=== PATIENT | female | born 1950 | race Caucasian/White ===

== ENCOUNTER → 2016-03-25 | Outpatient (CLI) | payer MEDICARE, BC | LOC: LAB.NP 10:51 | PROVIDERS: ATTEND Family Medicine | DX: E03.9 Hypothyroidism, unspecified (principal) ==

== ENCOUNTER → 2016-07-20 | Outpatient (CLI) | payer MEDICARE ==
--- NOTE | 2016-07-20 14:52 | MAM ---
History: Well woman exam. Date of exam: 07/20/2016 Services provided: Bilateral full field digital screening mammography. CAD, the images were reviewed with R2 computer aided detection. FINDINGS: Glandular tissue is scattered glandular contour with increased mammographic density. Comparison with 2012 exam. No dominant mass, architectural distortion or clustered microcalcification. IMPRESSION: Benign exam Recommendation: Routine annual mammography BIRAD CATEGORY: 2 BENIGN Electronically signed by: Alberta Bailey MD 07/20/2016 2:50 PM CDT
== END | disposition home or self-care (01) ==
LOC: MAMMO 10:32
PROVIDERS: ATTEND Family Medicine
DX: Z12.31 Encounter for screening mammogram for malignant neoplasm of breast (principal)

== ENCOUNTER → 2017-03-09 | Outpatient (CLI) | payer MEDICARE | END | disposition home or self-care (01) | LOC: GMA 14:22 | PROVIDERS: ATTEND Physician Assistant | DX: N30.00 Acute cystitis without hematuria (principal) ==

== ENCOUNTER → 2017-04-12 | Outpatient (CLI) | payer MEDICARE | LOC: GMAB 10:43 | PROVIDERS: ATTEND Family Medicine | DX: E03.9 Hypothyroidism, unspecified (principal) ==

== ENCOUNTER 2017-08-26 00:18 | Emergency (ER) | payer MEDICARE ==
[2017-08-26] MEDS ORDERED: SODIUM CHLORIDE 0.9% (FLUSH) 10 ML SYG IV PRN (00:30)
--- NOTE | 2017-08-26 00:42 | ED.PDOC ---
History of Present Illness - General Chief Complaint: Cardiovascular Problem Stated Complaint: irregular heart rate Time Seen by Provider: 08/26/17 00:38 Source: patient, RN notes reviewed, family Exam Limitations: no limitations Additional Information: 67 YEAR OLD WHITE FEMALE PRESENTS WITH PALPITATIONS PRE-CARDIAL CHEST DISCOMFORT SINCE 11 PM TONIGHT SHE HAS KNOWN HISTORY OF HTN CAD SP [facility] 2010 YESTERDAY HER SMART WATCH SHOWED A RATE OF 170 SHE HAS BEEN DIAGNOSED ONCE WITH ATRAIL FIBRILLATION THAT WAS PAROXYSMAL - History of Present Illness Timing/Duration: 1-3 hours Severity: moderate Location: substernal Activities at Onset: none Prior Chest Pain/Cardiac Workup: other - [facility] 2010 Improving Factors: nothing Worsening Factors: nothing Aspirin Treatment Today: 81 mg x 1 Allergies/Adverse Reactions: Allergies Calcium Channel Blockers Adverse Reaction (Verified 08/26/17 01:02) sever headache Dronedarone [From Multaq] Adverse Reaction (Verified 08/26/17 00:51) steroids Adverse Reaction (Uncoded 08/26/17 00:41) Home Medications: Ambulatory Orders Aspirin [Baby Aspirin] 81 mg PO DAILY 10/03/13 Atorvastatin Calcium [Lipitor] 40 mg PO DAILY 10/03/13 [place] Dextrin [Fiber Powder] 25 mg PO DAILY 10/03/13 Estrogens, Conjugated Vaginal [Premarin] 0.625 mg [place] WKLY 10/03/13 Levothyroxine Sodium [Synthroid] 0.075 mg PO 0700 10/03/13 Lisinopril 20 mg PO BID 10/03/13 Loperamide HCl 2 mg PO PRN 10/03/13 Valacyclovir HCl 1 gm PO PRN 10/03/13 Carvedilol [Coreg] 12.5 mg PO BID 08/26/17 Spironolactone 25 mg PO DAILY 08/26/17 Triamcinolone Acetonide (Nasal [Nasacort Allergy 24Hr] 55 mcg NA DAILY 08/26/17 Review of Systems - Review of Systems Constitutional: States: no symptoms reported EENTM: States: no symptoms reported Respiratory: States: no symptoms reported Cardiology: States: see HPI Gastrointestinal/Abdominal: States: no symptoms reported Genitourinary: States: no symptoms reported Musculoskeletal: States: no symptoms reported Skin: States: no symptoms reported Neurological: States: no symptoms reported Endocrine: States: no symptoms reported Past Medical History (General) - Patient Medical History Hx Seizures: No Hx Stroke: No Hx Dementia: No Hx Asthma: No Hx of COPD: No 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 Hx Congestive Heart Failure: No Hx Pacemaker: No Hx Hypertension: Yes Hx Thyroid Disease: Yes Hx Diabetes: No Hx Gastroesophageal Reflux: No Hx Renal Disease: No Hx Cancer: No Hx of HIV: No Hx Hepatitis C: No Hx MRSA: No - Vaccination History Hx Tetanus, Diphtheria Vaccination: No Hx Influenza Vaccination: Yes Hx Pneumococcal Vaccination: No - Social History Hx Tobacco Use: No Hx Chewing Tobacco Use: No Hx Alcohol Use: Yes - Red Wine qHS Hx Substance Use: No Hx Substance Use Treatment: No Hx Depression: No Hx Physical Abuse: No Hx Emotional Abuse: No Hx Suspected Abuse: No - Female History Patient : No Family Medical History - Family History Father Living Status: Hx Family Congestive Heart Failure: Yes Mother Living Status: Still Living Hx Family Hypertension: Yes Physical Exam - Physical Exam General Appearance: Alert, Anxious Eyes, Ears, Nose, Throat Exam: PERRL/EOMI, normal ENT inspection, TMs normal, pharynx normal Neck: non-tender, full range of motion, supple, normal inspection Respiratory: chest non-tender, lungs clear, normal breath sounds Cardiovascular/Chest: normal peripheral pulses, no edema, no gallop, no JVD, no murmur, tachycardia, irregularly irregular Gastrointestinal/Abdominal: normal bowel sounds, non tender, soft, no organomegaly, no pulsatile mass Extremity: normal range of motion, non-tender, normal inspection Neurologic: addiction specialist II-XII nml as tested, no motor/sensory deficits, alert, normal mood/affect, oriented x 3 Skin Exam: normal color, warm/dry Lymphatic: no adenopathy Progress - Results/Orders Results/Orders: Laboratory Tests 08/26/17 00:50 WBC 7.1 RBC 4.16 L Hgb 13.1 Hct 38.4 MCV 92.3 MCH 31.4 H MCHC 34.2 RDW 12.7 Plt Count 123 L MPV 8.8 Absolute Neuts (auto) 5.20 Absolute Lymphs (auto) 1.10 Absolute Monos (auto) 0.70 Absolute Eos (auto) 0.10 Absolute Basos (auto) 0.00 Neutrophils % 73.2 Lymphocytes % 15.3 L Monocytes % 9.2 H Eosinophils % 1.8 Basophils % 0.5 PT 10.5 INR 0.900 PTT (SP) 29.1 Sodium 138 Potassium 3.9 Chloride 108 Carbon Dioxide 22 Anion Gap 11.9 L BUN 18 Creatinine 0.82 BUN/Creatinine Ratio 22.0 H Random Glucose 113 H Serum Osmolality 278.4 Calcium 9.3 Creatine Kinase 83 CK-MB (CK-2) 1.8 Troponin I < 0.02 B-Natriuretic Peptide 195.0 H 2.[address] Martin [employer] FOR DR ORTIZ WHO ACCEPTED THE TRANSFER TO [facility] WILL CALL US SOON A BED IS AVAILABLE - EKG/XRAY/CT EKG: Atrial, Fibrillation Comments: ATRIAL FIBRILLATION WITH RVR - Additional EKG/XRAY/Consults XRAY #2: chest - NORMAL Departure - Departure Clinical Impression: Atrial fibrillation with rapid ventricular response Time of Disposition: :28 Disposition: Transfer to Hospital Departure Forms: ED Discharge - Pt. Copy, Patient Portal Self Enrollment Instructions: DI for Chest Pain Referrals: Clifford Vieira MD [Primary Care Provider] - 1-2 Weeks Home Medications: Ambulatory Orders Aspirin [Baby Aspirin] 81 mg PO DAILY 10/03/13 Atorvastatin Calcium [Lipitor] 40 mg PO DAILY 10/03/13 [place] Dextrin [Fiber Powder] 25 mg PO DAILY 10/03/13 Estrogens, Conjugated Vaginal [Premarin] 0.625 mg [place] WKLY 10/03/13 Levothyroxine Sodium [Synthroid] 0.075 mg PO 0700 10/03/13 Lisinopril 20 mg PO BID 10/03/13 Loperamide HCl 2 mg PO PRN 10/03/13 Valacyclovir HCl 1 gm PO PRN 10/03/13 Carvedilol [Coreg] 12.5 mg PO BID 08/26/17 Spironolactone 25 mg PO DAILY 08/26/17 Triamcinolone Acetonide (Nasal [Nasacort Allergy 24Hr] 55 mcg NA DAILY 08/26/17
[2017-08-26] MEDS ORDERED: VERAPAMIL HCL IV ONE (00:46)
[2017-08-26] MEDS ORDERED: AMIODARONE IV (LOAD) 150 MG in DEXTROSE 5% 100ML 100 ML IVPB ONE (00:55)
[2017-08-26] MEDS ORDERED: DEXTROSE 5% 100ML 100 ML IVPB ONE (01:02)
[2017-08-26] MEDS ORDERED: AMIODARONE HCL 150 MG/3 ML VIAL IVPB ONE (01:02)
--- NOTE | 2017-08-26 01:03 | RAD ---
Procedure: XR CHEST 1 VIEW Exam Date: 08/26/2017 Ordering Provider: Ritika Al Clinical Indication: irregular heart rate, chest pain Comparison: 10/05/2013 Findings: Residuals of thoracic surgery. Cardiomediastinal silhouette is unremarkable. No focal lung consolidation. No pleural effusion. No pneumothorax. Remote right-sided rib fractures. Impression: 1. No acute abnormalities in the chest. Electronically signed by: Pratik Bunch MD 08/26/2017 1:02 AM CDT
[2017-08-26] MEDS ORDERED: SODIUM CHLORIDE 0.9% 500ML 0 ML ONE (01:17)
[2017-08-26] MEDS ORDERED: SODIUM CHL 0.9% 250ML (AVIVA) 0 ML IVPB ONE (01:20)
[2017-08-26] MEDS ORDERED: AMIODARONE IV (MAINT) 900 MG in DEXTROSE 5% (AVIVA) 500ML 500 ML IVPB SCH (01:30)
[2017-08-26] MEDS ORDERED: SODIUM CHLORIDE 0.9% 500ML 500 ML ONE (02:25)
[2017-08-26] MEDS ORDERED: SODIUM CHLORIDE 0.9% 500ML 500 ML IVS ONE (02:31)
[2017-08-26 06:50] VITALS: O2SAT 97
[2017-08-26 06:53] VITALS: BP 103/67; TEMP 98.2
== END 2017-08-26 06:57 | disposition short-term general hospital (02) ==
LOC: ER 00:18
DX: I48.91 Unspecified atrial fibrillation (principal); R00.0 Tachycardia, unspecified; E07.9 Disorder of thyroid, unspecified; Z95.1 Presence of aortocoronary bypass graft; Z79.82 Long term (current) use of aspirin; Z79.899 Other long term (current) drug therapy; Z88.8 Allergy status to other drugs, medicaments and biological substances
CPT/HCPCS: 36415; 71045; 80048; 82550; 82553; 83880; 84484; 85025; 85610; 85730; 93005; 94760; J0282; J7040; J7060

== ENCOUNTER → 2018-06-20 | Outpatient (CLI) | payer MEDICARE | LOC: GMAE 10:27 | PROVIDERS: ATTEND Family Medicine | DX: E03.9 Hypothyroidism, unspecified (principal) ==

== ENCOUNTER → 2018-08-22 | Outpatient (CLI) | payer MEDICARE ==
--- NOTE | 2018-08-28 16:28 | MAM ---
EXAM DESCRIPTION: 3D Screening BILATERAL : Digital Mammography. CLINICAL HISTORY: 68 years Female ANNUAL MAMMOGRAM . No complaints. Remote family history of breast cancer. Childbirth. Postmenopausal. Previous HRT. Lifetime risk of developing breast cancer (Tyrer-Cuzick model)(%): 5.9. COMPARISON: Bilateral screening digital breast tomosynthesis 07/27/2017. TECHNIQUE: Bilateral CC and MLO projection full-field images, digital tomosynthesis mammographic technique. Bilateral digital 2-D full-field MLO images. CAD not available for tomosynthesis or 2-D images. FINDINGS: The breast parenchymal density pattern is: Heterogeneously dense breast tissue, which may obscure small masses. No skin thickening or nipple retraction. Bilateral axillary lymph nodes. Bilateral solitary microcalcifications. No new focal, stellate mass or density, focal asymmetry , and no suspicious microcalcifications bilaterally. Stable mammograms compared to prior study. IMPRESSION: Benign exam. BIRAD CATEGORY: 2 BENIGN FINDINGS. RECOMMENDATIONS: FOLLOW UP: Routine digital bilateral mammographic screening, one year interval from August 2018. Written communication explaining the IMPRESSION and follow-up, will be mailed to the patient and referring health care provider. According to the [employer] [place] [employer], yearly mammograms are recommended starting at age 40 and continuing as long as a woman is in good health. Any breast change noted on a breast self-exam should be reported promptly to the patient's healthcare provider. Breast MRI is recommended for women with an approximately 20-25% or greater lifetime risk of breast cancer, including women with a strong family history of breast or ovarian cancer and women who have been treated for Hodgkin's disease. A negative mammographic report should not delay tissue diagnosis in patients with significant clinical history or physical findings. Extremely dense breast tissue limits the sensitivity of digital mammography. Electronically signed by: Willis Ho MD 08/28/2018 4:26 PM CDT
== END ==
LOC: MAMMO 11:01
PROVIDERS: ATTEND Family Medicine
DX: Z12.31 Encounter for screening mammogram for malignant neoplasm of breast (principal)

== ENCOUNTER → 2019-11-19 | Outpatient (CLI) | payer MEDICARE | LOC: GMAE 17:00 | PROVIDERS: ATTEND Family Medicine | DX: R30.0 Dysuria (principal) ==

== ENCOUNTER → 2020-01-07 | Outpatient (CLI) | payer MEDICARE | LOC: GMAE 14:22 | PROVIDERS: ATTEND Family Medicine | DX: R30.0 Dysuria (principal) ==

== ENCOUNTER → 2020-03-28 | Outpatient (CLI) | payer MEDICARE | LOC: GMAE 12:42 | PROVIDERS: ATTEND Family Medicine | DX: E03.9 Hypothyroidism, unspecified (principal); E78.2 Mixed hyperlipidemia ==